=== PATIENT | female | born 1970 | race Caucasian/White ===

== ENCOUNTER → 2020-09-14 | Outpatient (CLI) | payer OTHER | LOC: KOH-I 09-06 09:00 | DX: R74.01 Elevation of levels of liver transaminase levels (principal); K76.0 Fatty (change of) liver, not elsewhere classified | CPT/HCPCS: 76705 ==

== ENCOUNTER → 2020-09-24 | Outpatient (CLI) | payer OTHER ==
[~2020-09-24] VITALS: Ht 172.7 cm; Wt 53.5 kg
[2020-09-24 09:22] LABS: HEMOGLOBIN 14.5 gm/dl (12.3-15.3); RED BLOOD COUNT 4.19 M/UL (4.00-5.10); WHITE BLOOD COUNT 10.1 K/UL (4.5-11.0)
[2020-09-24 09:49] LABS: BUN/CREATININE RATIO 24 (0-10)
== END ==
LOC: OPSV 09-17 08:00
PROVIDERS: Student in an Organized Health Care Education/Training Program
DX: Z51.81 Encounter for therapeutic drug level monitoring (principal); K76.9 Liver disease, unspecified; G62.9 Polyneuropathy, unspecified; G72.49 Other inflammatory and immune myopathies, not elsewhere classified; R74.01 Elevation of levels of liver transaminase levels; I82.409 Acute embolism and thrombosis of unspecified deep veins of unspecified lower extremity; G43.909 Migraine, unspecified, not intractable, without status migrainosus; G47.00 Insomnia, unspecified; M79.10 Myalgia, unspecified site; G71.00 Muscular dystrophy, unspecified; E53.1 Pyridoxine deficiency; R21 Rash and other nonspecific skin eruption; Z79.899 Other long term (current) drug therapy
CPT/HCPCS: 36415; 80053; 85025; 96365; 96366; J1568

== ENCOUNTER → 2020-11-05 | Outpatient (CLI) | payer OTHER ==
[~2020-11-05] VITALS: Ht 172.7 cm; Wt 53.5 kg
== END ==
LOC: OPSV 10-29 08:00
DX: I82.409 Acute embolism and thrombosis of unspecified deep veins of unspecified lower extremity (principal); G43.909 Migraine, unspecified, not intractable, without status migrainosus; G72.49 Other inflammatory and immune myopathies, not elsewhere classified; G47.00 Insomnia, unspecified; G71.00 Muscular dystrophy, unspecified; G62.9 Polyneuropathy, unspecified; E53.1 Pyridoxine deficiency; M79.10 Myalgia, unspecified site; R21 Rash and other nonspecific skin eruption; F17.200 Nicotine dependence, unspecified, uncomplicated; Z51.81 Encounter for therapeutic drug level monitoring; Z83.3 Family history of diabetes mellitus; Z63.5 Disruption of family by separation and divorce
CPT/HCPCS: 96365; 96366; J1568

== ENCOUNTER → 2020-12-03 | Outpatient (CLI) | payer OTHER ==
[~2020-12-03] VITALS: Ht 172.7 cm; Wt 53.5 kg
== END ==
LOC: OPSV 09:00
DX: G72.49 Other inflammatory and immune myopathies, not elsewhere classified (principal)
CPT/HCPCS: 96365; 96366; J1568

== ENCOUNTER → 2020-12-31 | Outpatient (CLI) | payer OTHER ==
[~2020-12-31] VITALS: Ht 172.7 cm; Wt 53.5 kg
== END ==
LOC: OPSV 08:46
DX: I82.409 Acute embolism and thrombosis of unspecified deep veins of unspecified lower extremity (principal); G43.909 Migraine, unspecified, not intractable, without status migrainosus; G72.49 Other inflammatory and immune myopathies, not elsewhere classified; G47.00 Insomnia, unspecified; M79.10 Myalgia, unspecified site; G71.00 Muscular dystrophy, unspecified; M62.89 Other specified disorders of muscle; E53.1 Pyridoxine deficiency; R21 Rash and other nonspecific skin eruption; G62.9 Polyneuropathy, unspecified; Z51.81 Encounter for therapeutic drug level monitoring; R74.01 Elevation of levels of liver transaminase levels; F17.200 Nicotine dependence, unspecified, uncomplicated; Z63.5 Disruption of family by separation and divorce
CPT/HCPCS: 96365; 96366; J1568

== ENCOUNTER → 2021-01-28 | Outpatient (CLI) | payer OTHER ==
[~2021-01-28] VITALS: Ht 172.7 cm; Wt 53.5 kg
== END ==
LOC: OPSV 09:00
DX: G72.49 Other inflammatory and immune myopathies, not elsewhere classified (principal); Z88.8 Allergy status to other drugs, medicaments and biological substances
CPT/HCPCS: 96365; 96366; J1568

== ENCOUNTER → 2021-02-25 | Outpatient (CLI) | payer OTHER ==
[~2021-02-25] VITALS: Ht 172.7 cm; Wt 53.5 kg
== END ==
LOC: OPSV 08:58
DX: G72.49 Other inflammatory and immune myopathies, not elsewhere classified (principal); G71.00 Muscular dystrophy, unspecified; R21 Rash and other nonspecific skin eruption; G62.9 Polyneuropathy, unspecified
CPT/HCPCS: 96365; 96366; J1568

== ENCOUNTER → 2021-03-24 | Outpatient (CLI) | payer OTHER ==
[~2021-03-24] VITALS: Ht 172.7 cm; Wt 53.5 kg
== END ==
LOC: OPSV 09:00
DX: G72.49 Other inflammatory and immune myopathies, not elsewhere classified (principal); Z88.8 Allergy status to other drugs, medicaments and biological substances; Z79.891 Long term (current) use of opiate analgesic; G62.9 Polyneuropathy, unspecified; E53.1 Pyridoxine deficiency; F17.200 Nicotine dependence, unspecified, uncomplicated; F41.9 Anxiety disorder, unspecified; M62.89 Other specified disorders of muscle; G71.00 Muscular dystrophy, unspecified; G43.909 Migraine, unspecified, not intractable, without status migrainosus; I82.409 Acute embolism and thrombosis of unspecified deep veins of unspecified lower extremity
CPT/HCPCS: 96365; 96366; J1568

== ENCOUNTER → 2021-05-19 | Outpatient (CLI) | payer OTHER | LOC: OPSV 05-11 09:00 | DX: G72.49 Other inflammatory and immune myopathies, not elsewhere classified (principal); I82.409 Acute embolism and thrombosis of unspecified deep veins of unspecified lower extremity; G43.909 Migraine, unspecified, not intractable, without status migrainosus; G47.00 Insomnia, unspecified; M79.10 Myalgia, unspecified site; G71.00 Muscular dystrophy, unspecified; E53.1 Pyridoxine deficiency; G52.9 Cranial nerve disorder, unspecified; F17.200 Nicotine dependence, unspecified, uncomplicated | CPT/HCPCS: 96365; 96366; J1568 ==

== ENCOUNTER → 2021-06-21 | Outpatient (CLI) | payer OTHER ==
[~2021-06-21] VITALS: Ht 172.7 cm; Wt 74.8 kg
== END ==
LOC: OPSV 06-16 09:00
DX: G72.49 Other inflammatory and immune myopathies, not elsewhere classified (principal); G43.909 Migraine, unspecified, not intractable, without status migrainosus; R74.01 Elevation of levels of liver transaminase levels; G60.8 Other hereditary and idiopathic neuropathies
CPT/HCPCS: 96365; 96366; J1561; J1568

== ENCOUNTER → 2021-07-22 | Outpatient (CLI) | payer OTHER ==
[~2021-07-22] VITALS: Ht 172.7 cm; Wt 53.5 kg
== END ==
LOC: OPSV 09:00
DX: G72.49 Other inflammatory and immune myopathies, not elsewhere classified (principal); G43.909 Migraine, unspecified, not intractable, without status migrainosus; G60.8 Other hereditary and idiopathic neuropathies; R74.01 Elevation of levels of liver transaminase levels; I82.409 Acute embolism and thrombosis of unspecified deep veins of unspecified lower extremity; G62.9 Polyneuropathy, unspecified; F17.200 Nicotine dependence, unspecified, uncomplicated; Z88.8 Allergy status to other drugs, medicaments and biological substances
CPT/HCPCS: 96365; 96366; J1568

== ENCOUNTER → 2021-08-19 | Outpatient (CLI) | payer OTHER ==
[~2021-08-19] VITALS: Ht 172.7 cm; Wt 53.5 kg
== END ==
LOC: OPSV 09:00
DX: G72.49 Other inflammatory and immune myopathies, not elsewhere classified (principal); G60.8 Other hereditary and idiopathic neuropathies; G43.909 Migraine, unspecified, not intractable, without status migrainosus; R74.01 Elevation of levels of liver transaminase levels; I82.409 Acute embolism and thrombosis of unspecified deep veins of unspecified lower extremity
CPT/HCPCS: 96365; 96366; J1568

== ENCOUNTER → 2021-09-21 | Outpatient (CLI) | payer OTHER | LOC: OPSV 09-16 09:00 | DX: G72.49 Other inflammatory and immune myopathies, not elsewhere classified (principal) | CPT/HCPCS: 96365; 96366; J1568 ==

== ENCOUNTER → 2021-10-21 | Outpatient (CLI) | payer OTHER ==
[~2021-10-21] VITALS: Ht 172.7 cm; Wt 53.5 kg
== END ==
LOC: OPSV 08:50
DX: G72.49 Other inflammatory and immune myopathies, not elsewhere classified (principal)
CPT/HCPCS: 96365; 96366; J1568

== ENCOUNTER → 2021-11-18 | Outpatient (CLI) | payer OTHER ==
[~2021-11-18] VITALS: Ht 172.7 cm; Wt 53.5 kg
== END ==
LOC: OPSV 08:31
DX: G72.49 Other inflammatory and immune myopathies, not elsewhere classified (principal)
CPT/HCPCS: 96365; 96366; J1568

== ENCOUNTER → 2022-01-13 | Outpatient (CLI) | payer OTHER ==
[~2022-01-13] VITALS: Ht 172.7 cm; Wt 71.7 kg
== END ==
LOC: OPSV 08:51
DX: G72.49 Other inflammatory and immune myopathies, not elsewhere classified (principal)
CPT/HCPCS: 96365; 96366; J1568

== ENCOUNTER 2022-02-10 18:07 | Inpatient (IN) | payer OTHER ==
[~2022-02-10] VITALS: Ht 175.3 cm; Wt 69.2 kg
[2022-02-10 22:31] LABS: HEMOGLOBIN 11.5 gm/dl (12.3-15.3); RED BLOOD COUNT 3.21 M/UL (4.00-5.10); WHITE BLOOD COUNT 4.6 K/UL (4.5-11.0)
[2022-02-10 22:44] LABS: BUN/CREATININE RATIO 25 (0-10)
[2022-02-11] MEDS ORDERED: AMITRIPTYLINE H25 MG PO (10:30)
[2022-02-11] MEDS ORDERED: TRAZODONE HCL50 MG PO (10:31)
[2022-02-11] MEDS ORDERED: CLONAZEPAM1 MG PO ×2 (10:31→10:32)
[2022-02-11] MEDS ORDERED: DULOXETINE HCL60 MG PO (10:32)
[2022-02-11 10:57] LABS: HEMOGLOBIN 11.4 gm/dl (12.3-15.3); RED BLOOD COUNT 3.18 M/UL (4.00-5.10)
[2022-02-11 11:02] LABS: WHITE BLOOD COUNT 3.2 K/UL (4.5-11.0)
[2022-02-11 11:14] LABS: BUN/CREATININE RATIO 16 (0-10)
[2022-02-11] MEDS ORDERED: ENDOCET 7.5-321 EACH PO (17:26)
[2022-02-11] MEDS ORDERED: ELIQUIS2.5 MG PO (17:26)
[2022-02-11] MEDS ORDERED: ZOFRAN 4 MG TAB4 MG PO (17:26)
[2022-02-12 02:59] LABS: RED BLOOD COUNT 3.01 M/UL (4.00-5.10); WHITE BLOOD COUNT 3.9 K/UL (4.5-11.0)
[2022-02-12 03:19] LABS: BUN/CREATININE RATIO 23 (0-10)
[2022-02-13 02:57] LABS: HEMOGLOBIN 10.2 gm/dl (12.3-15.3); RED BLOOD COUNT 2.86 M/UL (4.00-5.10); WHITE BLOOD COUNT 3.1 K/UL (4.5-11.0)
[2022-02-13 03:26] LABS: BUN/CREATININE RATIO 21 (0-10)
[2022-02-13 18:10] LABS: HEPARIN INDUCED PLATELET AB 0.094 OD (0.000-0.400)
[2022-02-14 03:02] LABS: HEMOGLOBIN 10.1 gm/dl (12.3-15.3); RED BLOOD COUNT 2.93 M/UL (4.00-5.10); WHITE BLOOD COUNT 3.3 K/UL (4.5-11.0)
[2022-02-14 03:35] LABS: BUN/CREATININE RATIO 18 (0-10)
[2022-02-15 02:52] LABS: HEMOGLOBIN 11.3 gm/dl (12.3-15.3); RED BLOOD COUNT 3.17 M/UL (4.00-5.10)
[2022-02-15 03:02] LABS: WHITE BLOOD COUNT 4.8 K/UL (4.5-11.0)
[2022-02-15 03:12] LABS: BUN/CREATININE RATIO 14 (0-10)
== END 2022-02-15 13:20 | disposition home or self-care (01) | DRG 481 ==
LOC: ER1 18:07 → CDU 20:58 → M/S 20:58
PROVIDERS: Internal Medicine; Orthopaedic Surgery; ADMIT Internal Medicine
PROC: 0QS606Z Reposition Right Upper Femur with Intramedullary Internal Fixation Device, Open Approach (ICD-10-PCS; principal; 2022-02-11 17:30)
DX: S72.011A Unspecified intracapsular fracture of right femur, initial encounter for closed fracture (principal); D62 Acute posthemorrhagic anemia; J98.11 Atelectasis; W01.0XXA Fall on same level from slipping, tripping and stumbling without subsequent striking against object, initial encounter; M21.051 Valgus deformity, not elsewhere classified, right hip; F41.9 Anxiety disorder, unspecified; F32.A Depression, unspecified; D69.6 Thrombocytopenia, unspecified; E87.6 Hypokalemia; G89.29 Other chronic pain; R53.81 Other malaise; R74.01 Elevation of levels of liver transaminase levels; G71.00 Muscular dystrophy, unspecified; R07.89 Other chest pain; F17.200 Nicotine dependence, unspecified, uncomplicated; Z98.51 Tubal ligation status; Z90.89 Acquired absence of other organs; Z88.8 Allergy status to other drugs, medicaments and biological substances; Z79.01 Long term (current) use of anticoagulants; Z79.899 Other long term (current) drug therapy
CPT/HCPCS: 36415; 71045; 72072; 72100; 73502; 73552; 73562; 76000; 80048; 80053; 83036; 83735; 84100; 84132; 85025; 85027; 86850; 86900; 86901; 97110-GP-CQ; 97116-GP-CQ; 97161; 97166; 97530; 97530-GP-CQ; 97535; 99285; C1713; J0690; J1100; J1885; J2001; J2250; J2270; J2405; J2704; J2795; J3475; J3480; J7050; J7120

== ENCOUNTER → 2022-03-03 | Outpatient (CLI) | payer OTHER ==
[~2022-03-03] MED LIST: AMITRIPTYLINE H25 MG PO; CLONAZEPAM1 MG PO; DULOXETINE HCL60 MG PO; ELIQUIS2.5 MG PO; ENDOCET 7.5-321 EACH PO; TRAZODONE HCL50 MG PO; ZOFRAN 4 MG TAB4 MG PO
== END ==
LOC: OPSV 08:26
DX: G72.49 Other inflammatory and immune myopathies, not elsewhere classified (principal)
CPT/HCPCS: 96365; 96366; J1568

== ENCOUNTER → 2022-03-31 | Outpatient (CLI) | payer OTHER ==
[~2022-03-31] VITALS: Ht 172.7 cm; Wt 71.7 kg
== END ==
LOC: OPSV 08:40
DX: G72.49 Other inflammatory and immune myopathies, not elsewhere classified (principal)
CPT/HCPCS: 96365; 96366; J1568

== ENCOUNTER → 2022-05-10 | Outpatient (CLI) | payer OTHER ==
[~2022-05-10] VITALS: Ht 172.7 cm; Wt 71.7 kg
== END ==
LOC: OPSV 04-28 08:30
DX: G72.49 Other inflammatory and immune myopathies, not elsewhere classified (principal)
CPT/HCPCS: 96365; 96366; J1568

== ENCOUNTER → 2022-06-09 | Outpatient (CLI) | payer OTHER ==
[~2022-06-09] VITALS: Ht 172.7 cm; Wt 71.7 kg
== END ==
LOC: OPSV 08:44
DX: G72.49 Other inflammatory and immune myopathies, not elsewhere classified (principal)
CPT/HCPCS: 96365; 96366; J1568